=== PATIENT | female | born 1940 | race Caucasian/White ===

== ENCOUNTER → 2024-05-23 10:07 | Outpatient (REF) | payer OTHER, SELFPAY | LOC: HWWDC 10:07 | PROVIDERS: ATTENDING PHYSICIAN Family Medicine | DX: Z13.820 Encounter for screening for osteoporosis (principal); Z12.31 Encounter for screening mammogram for malignant neoplasm of breast | CPT/HCPCS: 77063; 77067; 77080 ==

== ENCOUNTER → 2024-12-18 11:53 | Outpatient (REF) | payer OTHER, SELFPAY | LOC: HWRAD 11:53 | PROVIDERS: ATTENDING PHYSICIAN Family Medicine | DX: Z20.828 Contact with and (suspected) exposure to other viral communicable diseases (principal); R05.3 Chronic cough; J30.9 Allergic rhinitis, unspecified; R09.81 Nasal congestion; I10 Essential (primary) hypertension; D47.3 Essential (hemorrhagic) thrombocythemia; E78.2 Mixed hyperlipidemia; M25.561 Pain in right knee | CPT/HCPCS: 71046; 73564 ==

== ENCOUNTER → 2025-06-09 07:17 | Outpatient (REF) | payer OTHER, SELFPAY | LOC: HWWDC 07:17 | PROVIDERS: ATTENDING PHYSICIAN Family Medicine | DX: Z12.31 Encounter for screening mammogram for malignant neoplasm of breast (principal) | CPT/HCPCS: 77063; 77067 ==